=== PATIENT | female | born 1985 | race Hispanic/Latino ===

== ENCOUNTER → 2017-11-15 | Day surgery (SDC) | payer OTHER ==
[2017-11-13 12:41] LABS: BASOPHILS % 0.4 % (0.0-1.0); EOSINOPHILS # (AUTO) 0.1 (0.0-0.4); EOSINOPHILS % 0.8 % (0.0-6.0); HEMATOCRIT 38.8 % (34.2-44.1); HEMOGLOBIN 13.2 g/dL (12.0-16.0); LYMPHOCYTES # (AUTO) 2.8 (1.0-3.2); LYMPHOCYTES % 33.1 % (18.0-39.1); MEAN CORPUSCULAR HEMOGLOBIN 31.1 pg (28-32); MEAN CORPUSCULAR VOLUME 91.3 fL (81-99); MONOCYTES # (AUTO) 0.8 (0.2-0.8); MONOCYTES % 9.8 % (4.4-11.3); NEUTROPHILS # (AUTO) 4.6 (2.1-6.9); NEUTROPHILS % 55.5 % (38.7-80.0); PLATELET COUNT 192 x10e3/uL (140-360); RED BLOOD COUNT 4.25 x10e6/uL (3.6-5.1); RED CELL DISTRIBUTION WIDTH 12.4 % (11.7-14.4)
[2017-11-13 12:57] LABS: ANION GAP 11.9 mmol/L (8-16); BLOOD UREA NITROGEN 11 mg/dL (7-26); BUN/CREATININE RATIO 17 (6-25); CARBON DIOXIDE 26 mmol/L (22-29); CHLORIDE 106 mmol/L (98-107); CREATININE, SERUM 0.66 mg/dL (0.57-1.11); EST GLOMERULAR FILTRATION RATE > 60 ML/MIN (60-); GLUCOSE 85 mg/dL (74-118); POTASSIUM 4.9 mmol/L (3.5-5.1); SODIUM 139 mmol/L (136-145)
[~2017-11-15] MED LIST: BUPIVACAINE 0.25%/EPI 30ML SDV INJ ONE; CEFAZOLIN SOD 1 GM VIAL ONE; DEXAMETHASONE SOD PHOS INJ 4 MG/ML VIAL ONE; FENTANYL CITRATE/PF 100MCG/2 ML INJ ONE; GLYCOPYRROLATE INJ 1MG/ 5 ML SYR ONE; KETOROLAC TROMETHAMINE 30 MG/ML VIAL ONE; LIDOCAINE HCL 2% LOCAL INJ 5 ML SDV VIAL INJ ONE; MIDAZOLAM HCL 2 MG/2 ML VIAL ONE; NEOSTIGMINE 5 MG/5ML SYR ONE; ONDANSETRON HCL INJ 2 MG/ML VIAL ONE; PROPOFOL IV EMULSION 10 MG/ML 20 ML VIAL ONE; ROCURONIUM BROMIDE 10 MG/ML 5ML VIAL ONE; SEVOFLURANE INHAL SOLN 250 ML PEN BTL ONE
--- NOTE | 2017-11-15 13:05 | Operative Report ---
DATE OF PROCEDURE: November 15, 2017 PREOPERATIVE DIAGNOSIS: Incarcerated umbilical hernia, symptomatic. POSTOPERATIVE DIAGNOSIS: Incarcerated umbilical hernia, symptomatic. PROCEDURE PERFORMED: Repair of incarcerated umbilical hernia. ANESTHESIA: General endotracheal. ESTIMATED BLOOD LOSS: Minimal. DRAINS: None. COMPLICATIONS: None. INDICATIONS AND FINDINGS: This patient is a 32-year-old female who complained of umbilical pain after lifting at work July 2017. No GI symptoms. INTRAOPERATIVE FINDINGS: The patient had an incarcerated umbilical hernia, reherniation of properitoneal fat through a small 1.5 cm defect. The repair was carried on primarily due to the small size of the defect. DESCRIPTION OF PROCEDURE: With the patient lying on the operative table in the supine position after administration of general anesthesia, she was prepped and draped for repair of umbilical hernia. An incision was made inferior to the umbilicus and carried down through the skin and subcutaneous tissue until the hernia was identified. It was dissected free from the surrounding tissues. It consisted of properitoneal fat. The excess fat was excised with electrocautery. The preperitoneal space was then entered. The defect was small, and I decided not to place a mesh. Then the repair was carried on primarily by placing a series of interrupted 2-0 Ethibond sutures to approximate then close the defect without any tension. The repair appeared to be strong. There was no fascial tension. The wound irrigated. The fascia was infiltrated with 0.25% Marcaine with epinephrine, and then the wound was closed in layers using 2-0 Vicryl for the undersurface of the umbilical skin to tack it to the fascia, and the soft tissues were then closed with a combination of 2-0 and 3-0 Vicryl. The skin was closed using a series of vertical mattress sutures with 3-0 silk. Sterile dressing was applied. The patient tolerated the procedure well, was taken to the recovery room in stable condition. Job#: [id number]
== END | disposition home or self-care (01) ==
LOC: OR 09:11
PROVIDERS: ATTEND Surgery
DX: K42.0 Umbilical hernia with obstruction, without gangrene (principal); F41.9 Anxiety disorder, unspecified; Z01.812 Encounter for preprocedural laboratory examination
CPT/HCPCS: 36415; 49587; 80048; 81025; 85025; J0690; J1100; J1885; J2001; J2250; J2405